=== PATIENT | female | born 1995 | race Caucasian/White ===

== ENCOUNTER 2017-10-09 12:44 | Emergency (ER) | payer SELFPAY ==
[2017-10-09 12:44] VITALS: BP 121/88; PULSE 90; RESP 16; TEMP 36.9; O2SAT 98; BMI 24.0
--- NOTE | 2017-10-09 13:18 | NURSING ---
PT OUT OF HYPOTHYROID MEDICATION. HAS GOTTEN REFILLS IN THE PAST THROUGH ED. DOES NOT HAVE PCP AT THIS TIME. STATES HAS ATTEMPTED TO FOLLOW UP WITH FREE CLINIC. POOR FOLLOW THROUGH D/T FINANCIAL PROCESS THERE PER PT. EDUCATION ON IMPORTANCE OF TAKING MEDICATION GIVEN/REIVEWED. PT SEEMS UNINTERESTED ON INFORMATION OR FOLLOW THROUGH. DR KO ALSO REINFORCED IMPORTANCE.
--- NOTE | 2017-10-09 13:21 | ED.DCSUM_ITS ---
- ER Visit Summary Date of Service: 10/09/17 Chief Complaint: Headache History of Present Illness: The patient is a 22 F who presents with head and scalp pain. For the past 3 weeks she has been having intermittent episodes of sharp shooting pain from the base of her skull along the right side of her head. This lasts about 3 seconds. She denies any fevers nausea or vomiting. In the last 3 days she is also developed a URI-like illness with cough congestion rhinorrhea and ear pressure. She also notes intermittent constipation and diarrhea. No abdominal pain. Denies chest pain shortness of breath neck pain. Physical Examination: Afebrile vitals are stable Moist mucous membranes Heart regular rate and rhythm Lungs are clear Abdomen soft Alert No focal or lateralizing neurological deficits Tympanic membranes are clear Patient complains of some bilateral ear pressure. Test Results: Not indicated Emergency Department Course and Treatment: I believe the patient's symptoms are consistent with occipital neuralgia. She was given a prescription for naproxen. She otherwise appears to have a viral URI. She was instructed on supportive care. She was advised to follow-up as an outpatient was discharged home. Treatment Plan: [] Disposition: Discharge Impression: Occipital neuralgia Upper respiratory infection This note was generated with [employer] dictation software. It may contain incorrect words, spelling, and punctuation that were not noted in review of the chart prior to signing ED Disposition - Plan for ED Patient: Chief Complaint: Headache Referrals: Care Physician,No Primary [Primary Care Provider] -
--- NOTE | 2017-10-09 13:21 | ED.DEP ---
ED Disposition - Plan for ED Patient: Chief Complaint: Headache Instructions: ED Cephalgia Unspecified, ED Upper Resp Infec No Abx Tx Prescriptions: Naproxen [Naprosyn] 500 mg PO BID #20 tab Referrals: Care Physician,No Primary [Primary Care Provider] - Eda Lu [NON-STAFF] -
[2017-10-09 13:33] VITALS: BP 122/74; PULSE 81; RESP 18; O2SAT 100
== END 2017-10-09 13:35 | disposition home or self-care (01) ==
LOC: ED 13:20
PROVIDERS: Emergency Provider Emergency Medicine
DX: M54.81 Occipital neuralgia (principal); J06.9 Acute upper respiratory infection, unspecified; K59.00 Constipation, unspecified; R19.7 Diarrhea, unspecified; Z72.0 Tobacco use
CPT/HCPCS: 99283

== ENCOUNTER → 2024-11-14 | Outpatient (CLI) | payer MEDICAID, SELFPAY ==
[2024-11-14 12:46] LABS: Absolute Lymphocyte Count 2.91 X10^3/uL (0.83-4.51); Basophil# 0.08 X10^3/uL; Basophil% 0.8 % (0-1); Eosinophils% 3.1 % (0-5); Hematocrit 46.4 % (37-47); Hemoglobin 15.3 g/dL (12.0-15.0); Lymphocyte # 2.91 X10^3/ul (0.83-4.51); Lymphocyte % 29.7 % (19-41); Mean Corpuscular Hgb 28.8 pg (27.0-32.0); Mean Corpuscular Volume 87.4 fL (81-99); Mean Platelet Vol. 8.7 fl (6.2-12.0); Monocyte# 0.51 X10^3/uL; Monocyte% 5.2 % (0-10); NRBC Flagged by Analyzer 0 % (0-5); Neutrophil # 5.96 X10^3/uL (2.7-7.7); Neutrophil % 60.8 % (47-70); Platelet Count 467 K/mm3 (150-450); RBC Distribution Width CV 13.3 % (11.6-14.6); RBC Distribution Width SD 42.9 fl (35.1-43.9); Red Blood Count 5.31 M/mm3 (4.2-5.4); White Blood Count 9.8 K/mm3 (4.4-11.0)
[2024-11-14 13:15] LABS: ALB/GLOB Ratio 1.5 RATIO (0.9-2.4); AST(SGOT) 17 U/L (<=31); Alanine Aminotransfer ALT/SGPT 18 U/L (<=34); Albumin, Serum 4.6 g/dL (3.5-5.0); Alkaline Phosphatase 65 U/L (35-104); Anion Gap 17 (5-15); BUN 6 mg/dL (4-19); BUN/Creat Ratio 8.1 RATIO (10-20); Calcium,Total 9.4 mg/dL (7.6-11.0); Carbon Dioxide 18.6 mmol/L (21.0-32.0); Chloride 104 mmol/L (98-108); EST Glomerular Filtration Rate 102 (>60); Follicle Stimulating Hormone 15.2 mIU/mL; Glucose 123 mg/dL (70-99); Luteinizing Hormone 29.1 mIU/mL; Potassium 4.4 mmol/L (3.3-5.1); Protein, Total 7.6 g/dL (5.9-8.4); Sodium Level 139 mmol/L (133-145); T4 Total, Thyroxin 6.7 ug/dL (4.8-13.9); Total Bilirubin 0.47 mg/dL (0.00-1.30)
[2024-11-15 04:07] LABS: PROLACTIN 27.3 ng/mL (4.8-33.4)
== END | disposition home or self-care (01) ==
LOC: BIMLAB 10:04
PROVIDERS: PCP Internal Medicine; Referring Provider Physician Assistant; Visit Provider Physician Assistant
DX: Z00.00 Encounter for general adult medical examination without abnormal findings (principal); E07.9 Disorder of thyroid, unspecified; N64.52 Nipple discharge
CPT/HCPCS: 36415; 80053; 83001; 83002; 84146; 84436; 84439; 84443; 85025

== ENCOUNTER → 2024-12-30 | Outpatient (CLI) | payer MEDICAID, SELFPAY ==
[2024-12-30 12:20] LABS: HIV Nonreactive (Nonreactive); Syphilis Antibodies Nonreactive (Nonreactive)
--- NOTE | 2024-12-30 13:51 | BI_ITS ---
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 TECHNIQUE: Bilateral Diagnostic digital breast tomosynthesis with 2D and 3D images. Computer aided detection. COMPARISON: No prior studies are available for comparison. FINDINGS: TISSUE DENSITY: The breast tissue is composed of scattered area of fibroglandular density. Bilateral Breast Mammographic Findings: No significant masses, calcifications or other abnormalities are identified. I suspect asymmetry of breast tissue were more breast tissue is seen in the upper-outer quadrant of the left breast as compared to the right side. BI/DIAG MAMM W/CAD, BILAT IMPRESSION: The patient presents with a palpable lump in the medial inferior retroareolar r egion of the right breast. Correlation with ultrasound recommended. Sonographic correlation also recommended for the upper lateral aspect of the left breast for breast asymmetry. RECOMMENDATION: BI-RADS category 0. Sonographic follow-up. A letter with findings and recommendations will be mailed to the patient. Reading Location: [facility]
--- NOTE | 2024-12-30 13:51 | US_ITS ---
PROCEDURE: BREAST LIMITED UNILATERAL N/A REASON FOR EXAM: RIGHT BREAST MASS TECHNIQUE: Targeted right breast ultrasound. COMPARISON: Prior mammogram done earlier in the day. FINDINGS: Right breast ultrasound was targeted to the upper inner quadrant of the right breast.. The breast tissue appears sonographically normal. No cyst, solid mass, or suspicious shadowing. US/Breast Limited Unilateral IMPRESSION: No sonographic abnormality is seen. BI-RADS category 1. Follow-up code: Routine Follow-up Reading Location: [facility]
--- NOTE | 2024-12-30 14:31 | US_ITS ---
PROCEDURE: BREAST LIMITED UNILATERAL 12/30/2024 REASON FOR EXAM: ABNORMAL MAMMO TECHNIQUE: Targeted left breast ultrasound. COMPARISON: Prior mammogram done earlier in the day. FINDINGS: Left breast ultrasound was targeted to the upper lateral aspect of the left breast.. There is an 8 mm x 8 mm x 4 mm cyst at the 1 o'clock position of the breast at 6 cm from the nipple. A similar-appearing cyst is seen at the 1 o'clock position of the breast at 6 cm from the nipple measuring 5 mm x 5 mm x 4 mm. US/Breast Limited Unilateral IMPRESSION: Impression: 2 subcentimeter cysts are seen in the upper-outer quadrant of the l eft breast. Birads: BI-RADS 2: BENIGN. RECOMMEND ANNUAL MAMMOGRAPHIC SCREENING. Reading Location: [id number]
[2024-12-30 15:02] LABS: Hemoglobin A1c 5.7 % (<=5.6)
[2025-01-01 06:07] LABS: Chlamydia By Nucleic Acid AMP Negative (Negative); Gonococcus By Nucleic Acid AMP Negative (Negative)
[2025-01-02 08:05] LABS: HPV Reflexed? NOT INDICATED
== END | disposition home or self-care (01) ==
PROVIDERS: Advanced Practice Midwife; PCP Internal Medicine; Referring Provider Nurse Practitioner Women's Health; Visit Provider Nurse Practitioner Women's Health
DX: N63.10 Unspecified lump in the right breast, unspecified quadrant (principal); N64.52 Nipple discharge; Z13.1 Encounter for screening for diabetes mellitus; Z11.3 Encounter for screening for infections with a predominantly sexual mode of transmission; Z12.4 Encounter for screening for malignant neoplasm of cervix; Z20.2 Contact with and (suspected) exposure to infections with a predominantly sexual mode of transmission
CPT/HCPCS: 77062; 36415; 76642; 77066; 83036; 86703; 86780; 87491; 87591; 88175; G0145; G0279